=== PATIENT | male | born 1940 | race Caucasian/White ===

== ENCOUNTER 2019-04-28 12:57 | Outpatient (CLI) | payer MEDICARE, SELFPAY ==
--- NOTE | 2019-04-28 13:09 | CT_ITS ---
WS: [id number] CTA ABDOMINAL AORTA WITH RUNOFF TECHNIQUE: Contrast enhanced CTA of the abdominal aorta with bilateral lower extremity runoff. Multip lanar reformatted images were obtained. MIP reformats were also reviewed. CLINICAL INFORMATION: PERIPHERAL ARTERY DISEASE COMPARISON: None. DLP: 1305.[address] scans at [facility] use at least one of these dose optimization techniques: automat ed exposure control; mA and/or kV adjustment per patient size (includes targeted exams where dose is matched to clinical indication); or iterative reconstruction. FINDINGS: Emphysematous changes in the lung bases. Left basilar atelectasis. Normal caliber abdominal aorta. Moderate aortic atheromatous disease. No aneurysm. Celiac and SMA origins are patent. Proxima l renal artery origins are patent. Adrenal glands are normal. Normal renal parenchymal enhancement. S mall esophageal hiatal hernia. Both adrenal glands are normal. No hydronephrosis. Normal liver and ga llbladder. Pancreatic fatty atrophy. Mild chronic compression superior endplate L1. Enlarged prostate measuring 5.6 x 3.6 CM. Sigmoid diverticulosis. Incidental fat-containing umbilical hernia. RIGHT: Moderate stenosis right common iliac artery at the origin and measuring 30-40% which remains p atent. Right external iliac and internal iliac arteries are patent with moderate calcified atheromato us disease. Right common femoral artery is patent. 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 Deep femoral artery is patent. Superficial femoral artery remains occluded throughout the t high. Popliteal artery is patent at the origin [id number]. Popliteal artery remains patent to the trifurcation. Normal 3 vessel runoff to the ankle. LEFT: Left common iliac artery is patent. Mild stenosis in the mid common iliac artery. External and internal iliac arteries are patent. Common femoral artery is patent. Superficial femoral and deep fem oral arteries are patent. Approximately 40% stenosis involving the mid left superficial femoral arter y and the proximal thigh which remains patent. SFA is patent to the adductor hiatus. Popliteal artery is patent. No significant flow-limiting stenosis. Popliteal artery is somewhat diminutive distally b ut remains patent. Normal 3 vessel runoff proximally with diminished flow in all 3 vessels along the mid calf and ankle. CT/CT angio abd aorta runof [id number] IMPRESSION: 1. Normal caliber abdominal aorta. No abdominal aortic aneurysm. 2. 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 3. 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 4. RIGHT popliteal artery is patent with normal three-vessel runoff to the ank le. 5. LEFT iliac and femoral arteries are patent without significant flow-limitin g stenosis. 6. LEFT popliteal artery is patent to the trifurcation with normal runoff prox imally. Diminished runoff in all 3 vessels in the mid and distal calf. 7. Enlarged prostate. Recommend correlation PSA.
[2019-04-28] MEDS: iohexol 350 mg/mL 100 mL Btl IV (13:57)
[2019-04-28 14:59] LABS: Blood Urea Nitrogen 11 mg/dL (8-23)
== END 2019-04-28 12:58 | disposition home or self-care (01) ==
PROVIDERS: Family Provider Family Medicine; PCP Family Medicine; Visit Provider Internal Medicine Cardiovascular Disease
DX: I70.92 Chronic total occlusion of artery of the extremities (principal); I73.9 Peripheral vascular disease, unspecified; I70.8 Atherosclerosis of other arteries; N40.0 Benign prostatic hyperplasia without lower urinary tract symptoms
CPT/HCPCS: 75635; 82565; 84520; Q9967

== ENCOUNTER → 2021-02-05 14:21 | Outpatient (BNVA) | payer MEDICARE, SELFPAY | PROVIDERS: Family Provider Family Medicine; PCP Family Medicine; Referring Provider Family Medicine; Visit Provider Specialist | DX: G62.9 Polyneuropathy, unspecified (principal) | CPT/HCPCS: 99204 ==

== ENCOUNTER 2021-02-18 13:14 | Outpatient (CLI) | payer MEDICARE, SELFPAY | END 2021-02-18 13:15 | disposition home or self-care (01) | PROVIDERS: PCP Family Medicine; Visit Provider Specialist | DX: G62.9 Polyneuropathy, unspecified (principal) | CPT/HCPCS: 83520; 86334 ==

== ENCOUNTER → 2021-03-05 12:52 | Outpatient (BNVA) | payer MEDICARE, SELFPAY | PROVIDERS: PCP Family Medicine; Referring Provider Specialist; Visit Provider Specialist | DX: G62.89 Other specified polyneuropathies (principal) | CPT/HCPCS: 95910 ==

== ENCOUNTER → 2021-05-01 14:09 | Outpatient (BNVA) | payer MEDICARE, SELFPAY | PROVIDERS: PCP Family Medicine; Visit Provider Specialist | DX: G61.81 Chronic inflammatory demyelinating polyneuritis (principal) | CPT/HCPCS: 99214 ==